=== PATIENT | female | born 1960 | race Caucasian/White ===

== ENCOUNTER 2018-01-27 21:19 | Emergency (ER) | payer SELFPAY ==
[~2018-01-27] VITALS: Ht 142.2 cm; Wt 60.0 kg
[~2018-01-27 21:19] MED LIST: CHOL50006 PO; CULT10CA2 PO; CYCL-36 PO; DICL50 PO; FOSA70TA PO; JANU100T PO; LEVEINJ SQ; LEVO.05 PO; NEXI40CA PO; OMEG100010 PO; PRAV40TA2 PO; [UNRECOGNIZED DRUG - OTHER]
[2018-01-27] MEDS ORDERED: IOHEXOL 350 MG/ML 10 ML VIAL (for RAD DIAG) IVCONTRAST ONE (21:20)
[2018-01-27 22:38] VITALS: BP 215/83; PULSE 66; RESP 18; TEMP 98.2; O2SAT 98
[2018-01-28] MEDS ORDERED: SODIUM CHLOR 0.9% 1000 ML INJ 1,000 ML IV SCH (00:07)
[2018-01-28] MEDS ORDERED: SODIUM CHLORIDE 0.9% FLUSH 10 ML FLUSH IVF PRN (00:15)
[2018-01-28] MEDS ORDERED: CALC1TAB87 PO (00:16)
[2018-01-28] MEDS ORDERED: OMEGCAP PO (00:16)
[2018-01-28] MEDS ORDERED: MULT1TAB46 (00:16)
--- NOTE | 2018-01-28 00:17 | PD ---
HPI Chief Complaint: General Weakness Time Seen by Provider: 23:57 Travel History International Travel<30 days: No Contact w/Intl Traveler<30days: No Traveled to known affect area: No History of Present Illness HPI Patient is a 57-year-old female who presents the emergency room with multiple complaints. Patient reports that she is type II diabetic, she is supposed to be taking Januvia for diabetes but has not taken this for the past year and a half as she has no insurance or primary care doctor. Patient reports that for the past 5 days, she has not been feeling well. 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 Patient reports that for the past 5 days, she has not been feeling well. reports overall generalized weakness, reports that her whole body has been hurting her. Patient reports that she had chest pain a few days ago, she could not describe her symptoms but they only lasted for a few minutes and resolved on its own - reports no chest pain at this time. Patient reports that she has been having abdominal pain, reports that her pain is diffuse but hurts more to the right lower quadrant. Patient reports that she has been having subjective fevers and chills. Reports nausea with no vomiting. 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) Social History Alcohol Use: No Tobacco Use: No Allergies-Medications (Allergen,Severity, Reaction): Coded Allergies: hydrocodone (Unverified Allergy, Severe, 01/27/18) hydromorphone (Unverified Allergy, Severe, 01/27/18) morphine (Unverified Allergy, Severe, 01/27/18) oxycodone (Unverified Allergy, Severe, 01/27/18) Reported Meds & Prescriptions Reported Meds & Active Scripts Active Macrobid (Nitrofurantoin Monoh/Nitrofur Macro) 100 Mg Cap 100 Mg PO BID 10 Days Reported [place]-3 Fish Oil/Vitamin (Fish Oil-Cholecalciferol) 1,000-1,000 Mg Cap 1 Cap PO DAILY Multi Vitamin Daily (Multiple Vitamin) 1 Tab Tab Calcium 600 with Vitamin D (Calcium Carbonate-Cholecalciferol) 600-400 mg-Unit Tab 1 Tab PO DAILY Review of Systems General / Constitutional: Positive: Fever, Chills Eyes: No: Visual changes HENT: No: Headaches Cardiovascular: Positive: Chest Pain or Discomfort Respiratory: No: Shortness of Breath Gastrointestinal: Positive: Nausea, Abdominal Pain, No: Vomiting, Diarrhea, Constipation Genitourinary: No: Dysuria Musculoskeletal: No: Pain Skin: No Rash Neurologic: Positive: Weakness Psychiatric: No: Depression Endocrine: No: Polydipsia Hematologic/Lymphatic: No: Easy Bruising Physical Exam Narrative GENERAL: NAD, well appearing SKIN: Focused skin assessment warm/dry. HEAD: Atraumatic. Normocephalic. EYES: Pupils equal and round. No scleral icterus. No injection or drainage. ENT: No nasal bleeding or discharge. Mucous membranes pink and moist. NECK: Trachea midline. No JVD. CARDIOVASCULAR: Regular rate and rhythm. No murmur appreciated. RESPIRATORY: No accessory muscle use. Clear to auscultation. Breath sounds equal bilaterally. GASTROINTESTINAL: Abdomen soft, mild tenderness to RLQ with no rebound or guarding, nondistended. Hepatic and splenic margins not palpable. MUSCULOSKELETAL: No obvious deformities. No clubbing. No cyanosis. No edema. NEUROLOGICAL: Awake and alert. No obvious cranial nerve deficits. Motor grossly within normal limits. Normal speech. PSYCHIATRIC: Anxious mood and affect; insight and judgment normal. Data Data Last Documented VS Vital Signs Date Time Temp Pulse Resp B/P (MAP) Pulse Ox O2 Delivery O2 Flow Rate FiO2 01/27/18 22:38 98.2 66 18 215/83 (127) 98 Orders Orders Electrocardiogram (01/28/18 00:07) B-Type Natriuretic Peptide (01/28/18 00:07) Ckmb (Isoenzyme) Profile (01/28/18 00:07) Complete Blood Count With Diff (01/28/18 00:07) Comprehensive Metabolic Panel (01/28/18 00:07) Magnesium (Mg) (01/28/18 00:07) Prothrombin Time / Inr (Pt) (01/28/18 00:07) Act Partial Throm Time (Ptt) (01/28/18 00:07) Troponin I (01/28/18 00:07) Lipase (01/28/18 00:07) Chest, Single Ap (01/28/18 00:07) Ecg Monitoring (01/28/18 00:07) Iv Access Insert/Monitor (01/28/18 00:07) Oximetry (01/28/18 00:07) Sodium Chloride 0.9% Flush (Ns Flush) (01/28/18 00:15) Urinalysis - C+S If Indicated (01/28/18 00:07) Sodium Chlor 0.9% 1000 Ml Inj (Ns 1000 M (01/28/18 00:07) Ct Abd/Pel W Iv Contrast(Rout) (01/28/18 00:07) Ondansetron Odt (Zofran Odt) (01/28/18 00:30) Ceftriaxone Inj (Rocephin Inj) (01/28/18 01:15) Iohexol 350 Inj (Omnipaque 350 Inj) (01/27/18 21:20) Labs Laboratory Tests Test 01/28/18 00:24 01/28/18 00:45 White Blood Count 6.8 TH/MM3 Red Blood Count 4.51 MIL/MM3 Hemoglobin 13.4 GM/DL Hematocrit 38.4 % Mean Corpuscular Volume 85.2 FL Mean Corpuscular Hemoglobin 29.7 PG Mean Corpuscular Hemoglobin Concent 34.9 % Red Cell Distribution Width 14.1 % Platelet Count 299 TH/MM3 Mean Platelet Volume 9.7 FL Neutrophils (%) (Auto) 52.6 % Lymphocytes (%) (Auto) 34.4 % Monocytes (%) (Auto) 7.0 % Eosinophils (%) (Auto) 5.0 % Basophils (%) (Auto) 1.0 % Neutrophils # (Auto) 3.5 TH/MM3 Lymphocytes # (Auto) 2.3 TH/MM3 Monocytes # (Auto) 0.5 TH/MM3 Eosinophils # (Auto) 0.3 TH/MM3 Basophils # (Auto) 0.1 TH/MM3 CBC Comment DIFF FINAL Differential Comment Prothrombin Time 9.8 SEC Prothromb Time International Ratio 1.0 RATIO Activated Partial Thromboplast Time 21.9 SEC Blood Urea Nitrogen 16 MG/DL Creatinine 0.70 MG/DL Random Glucose 122 MG/DL Total Protein 7.5 GM/DL Albumin 3.5 GM/DL Calcium Level 8.6 MG/DL Magnesium Level 2.2 MG/DL Alkaline Phosphatase 87 U/L Aspartate Amino Transf (AST/SGOT) 24 U/L Alanine Aminotransferase (ALT/SGPT) 27 U/L Total Bilirubin 0.4 MG/DL Sodium Level 139 MEQ/L Potassium Level 4.2 MEQ/L Chloride Level 107 MEQ/L Carbon Dioxide Level 21.5 MEQ/L Anion Gap 11 MEQ/L Estimat Glomerular Filtration Rate 86 ML/MIN Total Creatine Kinase 87 U/L Troponin I LESS THAN 0.02 NG/ML B-Type Natriuretic Peptide 33 PG/ML Lipase 153 U/L Urine Color YELLOW Urine Turbidity HAZY Urine pH 6.0 Urine Specific [place] 1.027 Urine Protein NEG mg/dL Urine Glucose (UA) NEG mg/dL Urine Ketones NEG mg/dL Urine Occult Blood NEG Urine Nitrite POS Urine Bilirubin NEG Urine Urobilinogen LESS THAN 2.0 MG/DL Urine Leukocyte Esterase LARGE Urine RBC 1 /hpf Urine WBC 6 /hpf Urine Squamous Epithelial Cells 1 /hpf Urine Renal Epithelial Cells <1 /hpf Urine Bacteria RARE /hpf Urine Mucus FEW /lpf Microscopic Urinalysis Comment CULT NOT INDICATED MDM Medical Decision Making Medical Screen Exam Complete: Yes Emergency Medical Condition: Yes Medical Record Reviewed: Yes Interpretation(s) EKG at 0019: NSR at 60bpm, qt/qtc: 416/417, no acute st or t wave changes Vital Signs Date Time Temp Pulse Resp B/P (MAP) Pulse Ox O2 Delivery O2 Flow Rate FiO2 01/27/18 22:38 98.2 66 18 215/83 (127) 98 Differential Diagnosis Electrolyte abnormality, appendicitis, cholecystitis, ACS, arrhythmia, hyperglycemia, viral syndrome, dehydration, rhabdomyolysis, hypertensive urgency Narrative Course During the course of the patients emergency department visit, the patients history, examination, and differential diagnosis were reviewed with the patient. The patient was placed on a filler room attendant with oximetry and frequent blood pressure monitoring. The patient had an IV access obtained and blood work sent for analysis. The patient was initially provided IVF as well as zofran ODT The patients laboratory studies were reviewed and remarkable for Laboratory Tests Test 01/28/18 00:24 01/28/18 00:45 White Blood Count 6.8 TH/MM3 (4.0-11.0) Red Blood Count 4.51 MIL/MM3 (4.00-5.30) Hemoglobin 13.4 GM/DL (11.6-15.3) Hematocrit 38.4 % (35.0-46.0) Mean Corpuscular Volume 85.2 FL (80.0-100.0) Mean Corpuscular Hemoglobin 29.7 PG (27.0-34.0) Mean Corpuscular Hemoglobin Concent 34.9 % (32.0-36.0) Red Cell Distribution Width 14.1 % (11.6-17.2) Platelet Count 299 TH/MM3 (150-450) Mean Platelet Volume 9.7 FL (7.0-11.0) Neutrophils (%) (Auto) 52.6 % (16.0-70.0) Lymphocytes (%) (Auto) 34.4 % (9.0-44.0) Monocytes (%) (Auto) 7.0 % (0.0-8.0) Eosinophils (%) (Auto) 5.0 % (0.0-4.0) Basophils (%) (Auto) 1.0 % (0.0-2.0) Neutrophils # (Auto) 3.5 TH/MM3 (1.8-7.7) Lymphocytes # (Auto) 2.3 TH/MM3 (1.0-4.8) Monocytes # (Auto) 0.5 TH/MM3 (0-0.9) Eosinophils # (Auto) 0.3 TH/MM3 (0-0.4) Basophils # (Auto) 0.1 TH/MM3 (0-0.2) CBC Comment DIFF FINAL Differential Comment Prothrombin Time 9.8 SEC (9.8-11.6) Prothromb Time International Ratio 1.0 RATIO Activated Partial Thromboplast Time 21.9 SEC (24.3-30.1) Blood Urea Nitrogen 16 MG/DL (7-18) Creatinine 0.70 MG/DL (0.50-1.00) Random Glucose 122 MG/DL (74-106) Total Protein 7.5 GM/DL (6.4-8.2) Albumin 3.5 GM/DL (3.4-5.0) Calcium Level 8.6 MG/DL (8.5-10.1) Magnesium Level 2.2 MG/DL (1.5-2.5) Alkaline Phosphatase 87 U/L (45-117) Aspartate Amino Transf (AST/SGOT) 24 U/L (15-37) Alanine Aminotransferase (ALT/SGPT) 27 U/L (10-53) Total Bilirubin 0.4 MG/DL (0.2-1.0) Sodium Level 139 MEQ/L (136-145) Potassium Level 4.2 MEQ/L (3.5-5.1) Chloride Level 107 MEQ/L (98-107) Carbon Dioxide Level 21.5 MEQ/L (21.0-32.0) Anion Gap 11 MEQ/L (5-15) Estimat Glomerular Filtration Rate 86 ML/MIN (>89) Total Creatine Kinase 87 U/L (26-192) Troponin I LESS THAN 0.02 NG/ML B-Type Natriuretic Peptide 33 PG/ML (0-100) Lipase 153 U/L (73-393) Urine Color YELLOW (YELLW/STRAW) Urine Turbidity HAZY (CLEAR) Urine pH 6.0 (5.0-8.5) Urine Specific [place] 1.027 (1.002-1.035) Urine Protein NEG mg/dL (NEG-TRACE) Urine Glucose (UA) NEG mg/dL (NEG) Urine Ketones NEG mg/dL (NEG) Urine Occult Blood NEG (NEG) Urine Nitrite POS (NEG) Urine Bilirubin NEG (NEG) Urine Urobilinogen LESS THAN 2.0 MG/DL (LESS Urine Leukocyte Esterase LARGE (NEG) Urine RBC 1 /hpf (0-3) Urine WBC 6 /hpf (0-5) Urine Squamous Epithelial Cells 1 /hpf (0-5) Urine Renal Epithelial Cells <1 /hpf (NONE) Urine Bacteria RARE /hpf (NONE) Urine Mucus FEW /lpf (OCC) Microscopic Urinalysis Comment CULT NOT INDICATED Radiology studies were reviewed and remarkable for Last Impressions Chest X-Ray 01/28/186 Signed Impressions: CONCLUSION: No acute cardiopulmonary disease identified. Abdomen/Pelvis CT 01/28/186 Signed Impressions: CONCLUSION: 1. Nonspecific distal rectal circumferential wall thickening. 2. Mild hepatic steatosis. Scattered hepatic hypodensities likely representing cysts or hemangiomas. 3. Diffuse atherosclerotic disease. cbc:wnl bmp: Sodium 139, chloride 107, BUN 16, creatinine 0.7, glucose 122, LFTs are within normal limits. UA positive for large leuk esterase, rare bacteria, positive nitrites, 6 white blood cells, patient was given dose of IV Rocephin. CT the abdomen pelvis with nonspecific distal rectal circumferential wall thickening, mild hepatic steatosis, diffuse atherosclerotic disease Patient was given a copy for lab work as well as her CT report, patient will follow-up with her primary care doctor and will return to the emergency room as needed. Patient was given [facility] follow-up Diagnosis Primary Impression: UTI (urinary tract infection) Qualified Codes: N30.00 - Acute cystitis without hematuria Additional Impression: Hepatic steatosis Referrals: Julian David MD [facility] Patient Instructions: General Instructions Additional Instructions: Please provide patient with a copy of their lab work and studies at discharge* * Please follow up with your primary care doctor in 2-3 days Return to the ER if symptoms worsen or progress Return to the ER as needed Med/Other Pt SpecificInfo: Prescription(s) given Scripts Nitrofurantoin Monohydrate Macrocrystals (Macrobid) 100 Mg Cap 100 MG PO BID for Infection for 10 Days, #20 CAP 0 Refills Prov: Kim Holly DO 01/28/18 Disposition: 01 DISCHARGE HOME Condition: Stable Kim Holly DO Jan 28, 2018 00:17
[2018-01-28] MEDS ORDERED: ONDANSETRON ODT 4 MG TAB PO ONE (00:30)
[2018-01-28 00:34] LABS: AUTOMATED NEUTROPHIL # 3.5 TH/MM3 (1.8-7.7); BASOPHIL # 0.1 TH/MM3 (0-0.2); EOSINOPHIL # 0.3 TH/MM3 (0-0.4); HEMATOCRIT 38.4 % (35.0-46.0); HEMOGLOBIN 13.4 GM/DL (11.6-15.3); LYMPH % 34.4 % (9.0-44.0); LYMPHOCYTE # 2.3 TH/MM3 (1.0-4.8); MEAN CELL VOLUME 85.2 FL (80.0-100.0); MEAN CORPUSCULAR HEMOGLOBIN 29.7 PG (27.0-34.0); MEAN CORPUSCULAR HGB CONC 34.9 % (32.0-36.0); MEAN PLATELET VOLUME 9.7 FL (7.0-11.0); MONOCYTE # 0.5 TH/MM3 (0-0.9); NEUT % 52.6 % (16.0-70.0); PLATELET COUNT 299 TH/MM3 (150-450); RED BLOOD COUNT 4.51 MIL/MM3 (4.00-5.30); RED CELL DISTRIBUTION WIDTH 14.1 % (11.6-17.2); WHITE BLOOD COUNT 6.8 TH/MM3 (4.0-11.0)
--- NOTE | 2018-01-28 00:43 | RADRPT ---
EXAM DATE: 01/28/2018 12:32 AM EDT AGE/SEX: 57 years / Female INDICATIONS: Short of breath. CLINICAL DATA: This is the patient's initial encounter. Patient reports that signs and symptoms have been present for 1 day and indicates a pain score of 0/10. MEDICAL/SURGICAL HISTORY: None. None. COMPARISON: No prior exams available for comparison. FINDINGS: Single AP view of the chest. The lungs are clear. Cardiomediastinal silhouette within norm al limits. No evidence of pleural effusion or pneumothorax. CONCLUSION: No acute cardiopulmonary disease identified. Electronically signed by: Torey Jamil MD 01/28/2018 12:42 AM EDT
[2018-01-28 00:51] LABS: PROTHROMBIN TIME - PATIENT 9.8 SEC (9.8-11.6)
[2018-01-28 00:55] LABS: ALBUMIN 3.5 GM/DL (3.4-5.0); AST (GOT) 24 U/L (15-37); BICARBONATE 21.5 MEQ/L (21.0-32.0); BLOOD UREA NITROGEN 16 MG/DL (7-18); CALCIUM 8.6 MG/DL (8.5-10.1); CHLORIDE 107 MEQ/L (98-107); GLOMERULAR FILTRATION RATE 86 ML/MIN (>89); GLUCOSE,RANDOM 122 MG/DL (74-106); MAGNESIUM 2.2 MG/DL (1.5-2.5); SODIUM (NA) 139 MEQ/L (136-145)
[2018-01-28 01:05] LABS: BACTERIA, URINE RARE /hpf; BILIRUBIN, URINE NEG (NEG); BLOOD, URINE NEG (NEG); GLUCOSE,URINE NEG (NEG); KETONE, URINE NEG (NEG); MUCUS URINE FEW /lpf (OCC); NITRITE,URINE POS (NEG); RENAL EPITHELIAL CELLS <1 /hpf; SQUAMOUS EPITHELIAL CELL URINE 1 /hpf (0-5); URINE COLOR YELLOW (YELLW/STRAW); URINE LEUKOCYTE ESTERASE LARGE (NEG)
[2018-01-28 01:07] LABS: ALKALINE PHOSPHATASE 87 U/L (45-117); ALT (GPT) 27 U/L (10-53); TOTAL BILIRUBIN ADULT 0.4 MG/DL (0.2-1.0); TOTAL PROTEIN 7.5 GM/DL (6.4-8.2); TROPONIN I LESS THAN 0.02 NG/ML (0.02-0.05)
[2018-01-28] MEDS ORDERED: cefTRIAXone INJ 1,000 MG in SODIUM CHLORIDE 0.9% INJ 100 ML IV ONE (01:15)
--- NOTE | 2018-01-28 02:53 | RADRPT ---
EXAM DATE: 01/28/2018 2:31 AM EDT AGE/SEX: 57 years / Female INDICATIONS: Abdomen pain. CLINICAL DATA: This is the patient's initial encounter. Patient reports that signs and symptoms have been present for 1 day and indicates a pain score of 7/10. MEDICAL/SURGICAL HISTORY: Hypertension. Diabetes mellitus type II. Tubal ligation. ORAL CONTRAST: Patient refused oral contrast. RADIATION DOSE: 8.04 CTDI (mGy) COMPARISON: No prior exams available for comparison. TECHNIQUE: Multiple contiguous axial images were obtained through the abdomen and pelvis following b olus infusion of 95 ml Omnipaque 350 (iohexol) nonionic water-soluble contrast as a cumulative dose for multiple exams. Patient refused oral contrast. Using automated exposure control and adjustment of the mA and/or kV according to patient size, the radiation dose was kept as low as reasonably achie vable to obtain optimal diagnostic quality images. FINDINGS: Lower Lungs: The visualized lower lungs are clear. Liver: Mild diffuse hypodensity of the liver indicating hepatic steatosis. Gallbladder within normal limits. Several scattered hypodensities in the liver with the largest seen in the left lobe on image #24 measuring 1 cm. Findings likely represent cysts or hemangiomas. Spleen: Homogeneous density without enlargement. Pancreas: Unremarkable without mass or calcification. Kidneys: Normal in size and shape. No evidence of mass or hydronephrosis. Adrenal Glands: Unremarkable. Aorta: Diffuse calcification of the aorta. Aortic diameter within normal limits. Bowel/Mesentery: No evidence of bowel dilatation. Nonspecific distal rectal circumferential wall thi ckening. Scattered colonic diverticula but no evidence of acute diverticulitis. Appendix within aimee l limits. Abdominal Wall: Intact. Retroperitoneum: No evidence of adenopathy in the retrocrural, para-aortic, or deep pelvic regions. Bladder: Contours are smooth. Reproductive Organs: No abnormal masses or calcifications seen. Inguinal: The inguinal region is unremarkable without evidence of adenopathy. Bony Structures: Facet arthrosis lower lumbar spine. CONCLUSION: 1. Nonspecific distal rectal circumferential wall thickening. 2. Mild hepatic steatosis. Scattered hepatic hypodensities likely representing cysts or hemangiomas. 3. Diffuse atherosclerotic disease. Electronically signed by: Torey Jamil MD 01/28/2018 2:51 AM EDT
[2018-01-28] MEDS ORDERED: MACR100C2 PO (04:06)
[2018-01-28 04:10] VITALS: BP 131/71
--- NOTE | 2018-01-28 14:23 | EKG ---
Date Performed: 01/28/2018 Time Performed: 00:19:20 PTAGE: 57 years EKG: Sinus rhythm NORMAL ECG NO PREVIOUS TRACING DOCTOR: Boy Mcdaniel Interpretating Date/Time 01/28/2018 14:21:03
== END 2018-01-28 04:22 | disposition home or self-care (01) ==
LOC: NEPC 21:19
DX: N30.00 Acute cystitis without hematuria (principal); K76.0 Fatty (change of) liver, not elsewhere classified; R07.9 Chest pain, unspecified; R11.0 Nausea; R06.02 Shortness of breath
CPT/HCPCS: 71045; 74177; 80053; 81001; 82550; 83690; 83735; 83880; 84484; 85025; 85610; 85730; 93005; 96361; 96365; 96366; 99285; J0696; J7030; Q9967